=== PATIENT | female | born 1965 | race Caucasian/White ===

== ENCOUNTER 2016-06-26 23:19 | Emergency (ER) | payer MEDICAID ==
--- NOTE | 2016-06-26 23:38 | Emergency Department Record ---
History of Present Illness - General Chief Complaint: Hypotension Stated Complaint: LOW BP Time Seen by Provider: 06/26/16 23:35 Source: Patient, Family Mode of Arrival: Ambulatory Limitations: No limitations - History of Present Illness Initial Comments: 50 yo female presents with weakness . She states she was admitted for a groin infection. She states she was treated with IV antibiotics and an I and D. The infection greatly improved. She was discharged today at 6pm. She got home and was tired and wanted to take a nap. She took her [place], Zanaflex, and Klonopin and laid down. He later noted that she was slow, slurred and sluggish. He took her blood pressure and it was noted to be low. He stated she was not confused just slower that her baseline to answer. No syncope. No chest pain or shortness of breath. She is scheduled for outpatient IV infusions of Vancomycin and Ertapenem. No fevers in the last [address] Nunn was the admitting doctor per the patient. Diagnosis: Cellulitis with Bartholin abscess, S/P I and D. Complaint: Lightheadedness, Other (Weakness) Onset/Timin -: Days(s) Description: Difficulty walking, Lightheadedness History of Same: No Severity: Mild Worsens With: Movement Associated Symptoms: Weakness - Related Data Home Medications Medication Instructions Recorded Confirmed Last Taken Ondansetron HCl [Zofran] 4 mg PO Q8HR PRN 07/05/13 06/26/16 11/09/15 Clonazepam [Clonazepam] 1 - 2 tab PO TID 10/11/14 06/26/16 11/09/15 Meclizine HCl [Antivert] 25 mg PO Q6HR PRN 11/09/15 06/26/16 11/06/15 Tizanidine HCl [Tizanidine HCl] 4 mg PO TID 11/26/15 06/26/16 Unknown Hydrocodone/Acetaminophen [[place] 1 tab PO Q6H PRN 03/03/16 06/26/16 Unknown 7.5mg/325mg] Promethazine HCl 12.5 mg PO BID 03/03/16 06/26/16 Unknown Allergies Allergy/AdvReac Type Severity Reaction Status Date / Time aspirin [ASPIRIN] Allergy Unknown ABDOMINAL Verified 03/03/16 18:00 PAIN iodine [IODINE] Allergy Unknown SHORTNESS Verified 03/03/16 18:00 OF BREATH latex [LATEX] Allergy Unknown RASH Verified 03/03/16 18:00 NSAIDS (Non-Steroidal Allergy Unknown ABDOMINAL Verified 03/03/16 18:00 Anti-Inflamma CRAMPS [NSAIDS (NON-STEROIDAL ANTI-INFLAMMA] venom-honey bee Allergy ANAPHYLAXIS Verified 03/03/16 18:00 [bee venom (honey bee)] Travel Screening - Travel/Exposure Within Last 30 Days Have you traveled within the last 30 days?: No Review of Systems Constitutional: Reports: Malaise, Weakness. Denies: Chills, Fever Eyes: Denies: Eye discharge, Eye pain, Photophobia, Vision change ENT: Denies: Congestion, Throat pain Respiratory: Denies: Cough, Dyspnea, Hemoptysis, Stridor, Wheezes Cardiovascular: Denies: Arrhythmia, Chest pain, Palpitations, Syncope (near) Endocrine: Denies: Polydipsia, Polyuria Gastrointestinal: Reports: Nausea. Denies: Abdominal pain, Diarrhea, Vomiting Genitourinary: Denies: Dysuria, Urgency Musculoskeletal: Denies: Arthralgia, Back pain, Myalgia, Neck pain Skin: Reports: As per HPI, Lesions. Denies: Bruising, Change in color Neurological: Reports: Weakness. Denies: Confusion, Headache Psychiatric: Denies: Anxiety Hematological/Lymphatic: Denies: Blood Clots, Easy bleeding, Easy bruising, Swollen glands Past Medical History - SOCIAL HISTORY Smoking Status: Former smoker Alcohol Use: None Drug Use: None - RESPIRATORY Hx Respiratory Disorders: Yes Hx Pneumonia: Yes (hospitalized in January 2016) - CARDIOVASCULAR Hx Cardio Disorders: No - NEURO Hx Neuro Disorders: Yes Hx Seizures: Yes (February 2016) - GI Hx GI Disorders: Yes Hx Nausea/Vomiting: Yes Hx Ulcer: Yes Comment:: poor absorption - Hx Genitourinary Disorders: Yes Hx Kidney Stones: Yes Hx UTI: Yes - ENDOCRINE Hx Endocrine Disorders: Yes Hx Diabetes: Yes (corrected after gastric bypass) - MUSCULOSKELETAL Hx Musculoskeletal Disorders: Yes Hx Arthritis: Yes Hx Fibromyalgia: Yes Comment:: chronic pain - PSYCH Hx Psych Problems: Yes Hx Anxiety: Yes Hx Depression: Yes - HEMATOLOGY/ONCOLOGY Hx Hematology/Oncology Disorders: Yes Hx Anemia: Yes Hx Blood Transfusions: Yes Comment:: Lupus Family Medical History Any Significant Family History?: Yes Hx Diabetes: Father, Mother, Grandparents Hx Heart Disease: Father, Mother, Grandparents Hx HTN: Father, Mother Hx Kidney Disease: Grandparents Hx Resp Disorders: Father, Mother, Grandparents Hx Seizures: Brother/Sister Hx Stroke: Brother/Sister Physical Exam - General General Appearance: Alert, Oriented x3, Cooperative, Other (slowed speech with slight slurring) Limitations: No limitations - Head Head exam: Atraumatic, Normocephalic, Normal inspection - Eye Eye exam: Normal appearance, PERRL. negative: Conjunctival injection, Periorbital swelling - ENT ENT exam: Normal exam, Mucous membranes moist Ear exam: Normal external inspection Nasal Exam: Normal inspection Mouth exam: Normal external inspection Teeth exam: Normal inspection Throat exam: Normal inspection - Neck Neck exam: Normal inspection, Full ROM. negative: Tenderness - Respiratory Respiratory exam: Normal lung sounds bilaterally. negative: Respiratory distress - Cardiovascular Cardiovascular Exam: Regular rate, Normal rhythm, Normal heart sounds - GI/Abdominal GI/Abdominal exam: Soft. negative: Tenderness - Rectal Rectal exam: Deferred - exam: Abnormal external exam. negative: Normal external exam (enlarged tender left labial area) - Extremities Extremities exam: Normal inspection. negative: Calf tenderness, Pedal edema - Back Back exam: Reports: Normal inspection, Full ROM. Denies: CVA tenderness (R), CVA tenderness (L), Muscle spasm, Rash noted, Tenderness - Neurological Neurological exam: Abnormal gait, Alert, Altered, Oriented X3 - Psychiatric Psychiatric exam: Flat affect - Skin Skin exam: Dry, Intact, Normal color, Warm Course - Reevaluation(s) Reevaluation #1: [place] [facility] [place] 06/27/16 00:00 Reevaluation #2: IV infusing. No distress. She seems sleepy and mildly slurred. No confusion 06/27/16 00:01 06/27/16 01:25 Reevaluation #3: EKG 23:58 Rate 86, NSR Intervals normal axis normal, ST normal artifact in V6 06/27/16 00:06 IV Fluid boluses being given BP 84/ No distress, calm respirations. 06/27/16 00:07 06/27/16 01:26 Reevaluation #4: CBC with a Hgb of 10.6 CR is 1.4 otherwise no acute changes. 06/27/16 00:[address] scans were reviewed The head CT scan was normal The NC of the ABD/Pelvis Gas in bladder from possible recent catheterization, bibasilar air space disease. The patient is starting her 2rd liter. BP is now 105/ The patient is very alert and conversation. No confusion. She got up to the bedside urinal without any symptoms. No lightheadedness or dizziness. Given her negative work up with labs, CT scans and clinical presentation that was consistent with over medicated (Zanaflex, Klonopin, [place]) at the time of her nap I do not find any other acute changes or ongoing symptoms as she is now quite alert and without symptoms. 06/27/16 01:11 06/27/16 01:12 06/27/16 01:26 06/27/16 01:29 Reevaluation #5: The blood pressure remains at her baseline as she reports her BP during the hospitalization was always around 100 to 110 systolic She remains very alert and conversational. The most plausible cause of her drowsiness, sleepiness was over medication with a negative work up, no fever, normal EKG, no other associated symptoms and a complete return to baseline after the medications She will be DC home She has her home infusions today She was instructed not to take her sleeping medications or pain medications tonight She is to call her PCP and OBGYN Tuesday as scheduled. 06/27/16 02:00 Medical Decision Making - Lab Data Result diagrams: 06/26/16 23:45 06/26/16 23:45 Disposition Disposition: Discharge Clinical Impression: Adverse effect of drug Disposition: Home, Self-Care Condition: (1) Good Instructions: Opioid Pain Management (ED) Additional Instructions: Do not take your pain medication tonight or your Klonopin Call your doctor tomorrow to discuss this ER visit and follow up your healing of your cellulitis and abscess Return to the ER if you have any return of symptoms or any other new symptoms that concern you Forms: Patient Portal Access Time of Disposition: 02:04
[2016-06-26 23:54] LABS: HEMATOCRIT 34.5 % (35.0-47.0); HEMOGLOBIN 10.6 gm/dl (11.6-16.0); MEAN CELL VOLUME 94.3 fl (81-97); MEAN CORPUSCULAR HGB CONC 30.7 g/dl (32-36); MEAN PLATELET VOLUME 8.8 fl (7.4-10.4); PLATELET COUNT 442 K/uL (130-400); RED BLOOD COUNT 3.66 M/uL (3.80-5.40); RED CELL DISTRIBUTION WIDTH 12.6 % (11.5-14.5); WHITE BLOOD COUNT W/O DIFF 7.5 K/uL (4.2-12.2)
[2016-06-27 00:01] LABS: MEAN CORPUSCULAR HEMOGLOBIN 28.9 pg (27-33)
[2016-06-27] MEDS ORDERED: 0.9 % SODIUM CHLORIDE 1,000 ML BAG IV ONE (00:02)
[2016-06-27 00:07] LABS: ALB/GLOB RATIO 1.1 (1.1-1.8); ALBUMIN 3.5 gm/dL (3.5-5.0); ALKALINE PHOSPHATASE 100 U/L (38-126); ALT/SGPT 18 U/L (9-52); ANION GAP 9.4 (7-16); AST/SGOT 17 U/L (14-36); BILIRUBIN,TOTAL 0.33 mg/dL (0.2-1.3); BLOOD UREA NITROGEN 9 mg/dL (7-17); CARBON DIOXIDE 23.6 mmol/L (22-30); CREATININE 1.4 mg/dL (0.52-1.04); EST GLOMERULAR FILTRATION RATE 42 ml/min; GLUCOSE,RANDOM 143 mg/dL (70-110); TOTAL PROTEIN 6.8 gm/dL (6.3-8.2)
[2016-06-27 00:08] LABS: PROTHROMBIN TIME (PATIENT) 11.3 SECONDS (9.5-12.1)
[2016-06-27 00:10] LABS: PARTIAL THROMBOPLASTIN TIME 63.9 SECONDS (24.5-39.1)
[2016-06-27 00:22] LABS: TROPONIN I < 0.012 ng/mL (0.00-0.034)
[2016-06-27 01:29] LABS: URINE APPEARANCE CLEAR; URINE BILIRUBIN NEGATIVE (NEGATIVE); URINE BLOOD MODERATE (NEGATIVE); URINE COLOR YELLOW; URINE GLUCOSE (UA) NEGATIVE (NEGATIVE); URINE KETONE NEGATIVE (NEGATIVE); URINE LEUKOCYTE ESTERASE SMALL (NEGATIVE); URINE NITRITE NEGATIVE (NEGATIVE); URINE PROTEIN NEGATIVE (NEGATIVE); URINE UROBILINOGEN 0.2 E.U./dL (0.20 - 1.00)
[2016-06-27 01:41] LABS: URINE BACTERIA 1+; URINE EPITHELIAL CELLS 0 - 2 (FEW); URINE WBC 0 - 2 (0-2/hpf)
[2016-06-27] MEDS ORDERED: HEPARIN SODIUM FLUSH 100 UNITS/ML SYR 5ML IVP ONE (02:16)
== END 2016-06-27 02:39 | disposition home or self-care (01) ==
LOC: ER 23:19
DX: I95.2 Hypotension due to drugs (principal); R42 Dizziness and giddiness; R47.81 Slurred speech; R10.84 Generalized abdominal pain; R26.2 Difficulty in walking, not elsewhere classified; R53.1 Weakness; T42.4X5A Adverse effect of benzodiazepines, initial encounter; T42.8X5A Adverse effect of antiparkinsonism drugs and other central muscle-tone depressants, initial encounter; T40.2X5A Adverse effect of other opioids, initial encounter; Y92.009 Unspecified place in unspecified non-institutional (private) residence as the place of occurrence of the external cause
CPT/HCPCS: 99284 ×2; 96374; 85730; 85610; 84484; 80053; 81001; 85027; 70450; 74176; 93005; 93010; J1642; 85025; J7030

== ENCOUNTER 2016-12-12 13:17 | Emergency (ER) | payer MEDICAID ==
--- NOTE | 2016-12-12 13:47 | Emergency Department Record ---
History of Present Illness - General Chief complaint: Vomiting Stated complaint: BODY ACHES,VOMITING Time Seen by Provider: 12/12/16 13:33 Source: Patient Mode of Arrival: Ambulatory Limitations: No limitations - History of Present Illness Initial comments: The patient is here due to feeling like she is dehydrated. She has a long hx of chronic pain and malabsorbtion and gets twice a week IV fluid infusions thru an infusaport. She missed both of her appointments last week due to being in pain after having 4 teeth extracted. Now she is out of her liquid Vicodin and she feels like she is dehydrated. She also now is having total body pain in all of her joints and extremities. The patient states she called her PCP and was told to go to the ER for hydration and pain control. MD complaint: Nausea Onset/Timin -: Days(s) Associated Abdominal Pain: No Quality: Aching Consistency: Constant Improves with: None Worsens with: None Associated Symptoms: Loss of appetite, Weakness - Related Data Home Medications Medication Instructions Recorded Confirmed Last Taken Amoxicillin [Amoxil] 10 ml PO BID 12/12/16 12/12/16 1 Day Ago ~12/11/16 Hydrocodone/Acetaminophen 5 ml PO Q4HR PRN 12/12/16 12/12/16 1 Day Ago [Hydrocodone/Acetamin ~12/11/16 7.5mg/325mg/15ml] Nortriptyline HCl [Nortriptyline 1 tab PO DAILY 12/12/16 12/12/16 1 Day Ago HCl] ~12/11/16 Allergies Allergy/AdvReac Type Severity Reaction Status Date / Time aspirin [ASPIRIN] Allergy Unknown ABDOMINAL Verified 03/03/16 18:00 PAIN iodine [IODINE] Allergy Unknown SHORTNESS Verified 03/03/16 18:00 OF BREATH latex [LATEX] Allergy Unknown RASH Verified 03/03/16 18:00 NSAIDS (Non-Steroidal Allergy Unknown ABDOMINAL Verified 03/03/16 18:00 Anti-Inflamma CRAMPS [NSAIDS (NON-STEROIDAL ANTI-INFLAMMA] venom-honey bee Allergy ANAPHYLAXIS Verified 03/03/16 18:00 [bee venom (honey bee)] Travel Screening - Travel/Exposure Within Last 30 Days Have you traveled within the last 30 days?: No - Travel/Exposure Within Last Year Have you traveled outside the [place] in the last year?: No - Additonal Travel Details Have you been exposed to anyone with a communicable illness?: No Review of Systems Constitutional: Denies: Chills, Fever Eyes: Denies: Eye discharge ENT: Denies: Congestion Respiratory: Denies: Cough, Dyspnea Past Medical History - SOCIAL HISTORY Smoking Status: Former smoker Alcohol Use: None Drug Use: None - RESPIRATORY Hx Respiratory Disorders: Yes Hx Pneumonia: Yes (hospitalized in January 2016) - CARDIOVASCULAR Hx Cardio Disorders: No - NEURO Hx Neuro Disorders: Yes Hx Seizures: Yes (February 2016) - GI Hx GI Disorders: Yes Hx Nausea/Vomiting: Yes Hx Ulcer: Yes Comment:: poor absorption - Hx Genitourinary Disorders: Yes Hx Kidney Stones: Yes Hx UTI: Yes - ENDOCRINE Hx Endocrine Disorders: Yes Hx Diabetes: Yes (corrected after gastric bypass) - MUSCULOSKELETAL Hx Musculoskeletal Disorders: Yes Hx Arthritis: Yes Hx Fibromyalgia: Yes Comment:: chronic pain - PSYCH Hx Psych Problems: Yes Hx Anxiety: Yes Hx Depression: Yes - HEMATOLOGY/ONCOLOGY Hx Hematology/Oncology Disorders: Yes Hx Anemia: Yes Hx Blood Transfusions: Yes Comment:: Lupus Family Medical History Any Significant Family History?: Yes Hx Diabetes: Father, Mother, Grandparents Hx Heart Disease: Father, Mother, Grandparents Hx HTN: Father, Mother Hx Kidney Disease: Grandparents Hx Resp Disorders: Father, Mother, Grandparents Hx Seizures: Brother/Sister Hx Stroke: Brother/Sister Physical Exam - General General Appearance: Alert, Oriented x3, Cooperative, No acute distress - Head Head exam: Atraumatic, Normocephalic, Normal inspection - Eye Eye exam: Normal appearance, PERRL - ENT Teeth exam: negative: Normal inspection (There are dental extraction sites but no obvious areas of infection.) Throat exam: Normal inspection. negative: Tonsillar erythema, Tonsillar exudate - Neck Neck exam: Normal inspection, Full ROM. negative: Tenderness - Respiratory Respiratory exam: Normal lung sounds bilaterally. negative: Respiratory distress - Cardiovascular Cardiovascular Exam: Regular rate, Normal rhythm, Normal heart sounds - GI/Abdominal GI/Abdominal exam: Soft, Normal bowel sounds. negative: Tenderness - Extremities Extremities exam: Normal inspection, Full ROM, Normal capillary refill. negative: Tenderness - Neurological Neurological exam: Alert, Normal gait. negative: Abnormal gait, Motor sensory deficit Course Vital Signs 12/12/16 13:20 Temperature 98.6 F Pulse Rate 97 H Respiratory 20 Rate Blood Pressure 139/83 Pulse Ox 98 - Reevaluation(s) Reevaluation #1: The patient is doing well. She has had no further vomiting in the ED and is resting comfortably. 12/12/16 14:35 Reevaluation #2: The patient is doing very well at this time. Her pain is much improved with the pain medicine and she has no further nausea or vomiting. On exam her abdomen is very soft and nontender in all 4 quads. She feels ready for home. 12/12/16 14:47 Medical Decision Making - Lab Data Result diagrams: 12/12/16 13:45 12/12/16 13:45 Disposition Disposition: Discharge Clinical Impression: Nausea & vomiting Qualifiers: Vomiting type: unspecified Vomiting Intractability: non-intractable Qualified Code(s): R11.2 - Nausea with vomiting, unspecified Disposition: Home, Self-Care Condition: (1) Good Instructions: Acute Nausea and Vomiting (ED) Additional Instructions: Please continue your regular medicines. Please see your PCP to refill your pain medicines if needed. Return to the ER for any problems, increased pain, fever, or vomiting. Forms: Patient Portal Access Time of Disposition: 14:45 Quality - Quality Measures Quality Measures: N/A - Blood Pressure Screening View Details: Yes Does Patient Have Any of the Following: No Blood Pressure Classification: Hypertensive Reading Systolic Measurement: 148 Diastolic Measurement: 78 Screening for High Blood Pressure: < Pre-Hypertensive BP, F/U Documented > [ G8950] Pre-Hypertensive Follow-up Interventions: Referral to alternative/primary care provider.
[2016-12-12] MEDS: 0.9 % SODIUM CHLORIDE 1,000 ML BAG IV ONE (13:50)
[2016-12-12] MEDS: ONDANSETRON HCL IV 4 MG/2 ML VIAL IV ONE (13:50)
[2016-12-12 13:59] LABS: EOS % 9.7 % (0-6); GRAN % 50.6 % (47-80); HEMOGLOBIN 11.1 gm/dl (11.6-16.0); MEAN CELL VOLUME 92.8 fl (81-97); MEAN CORPUSCULAR HEMOGLOBIN 29.4 pg (27-33); MEAN CORPUSCULAR HGB CONC 31.7 g/dl (32-36); MONO % 8.7 % (0-9); PLATELET COUNT 313 K/uL (130-400); RED BLOOD COUNT 3.77 M/uL (3.80-5.40); RED CELL DISTRIBUTION WIDTH 12.7 % (11.5-14.5); WHITE BLOOD COUNT W/O DIFF 4.1 K/uL (4.2-12.2)
[2016-12-12 14:16] LABS: ALB/GLOB RATIO 1.4 (1.1-1.8); ALBUMIN 3.7 g/dL (4.0-5.0); ALKALINE PHOSPHATASE 109 U/L (35-104); ALT/SGPT 12 U/L (<33); AST/SGOT 18 U/L (10.0-35.0); BLOOD UREA NITROGEN 10 mg/dL (6-20); CREATININE 0.6 mg/dL (0.5-0.9); EST GLOMERULAR FILTRATION RATE > 60 mL/min; GLUCOSE,RANDOM 114 mg/dL (74-109); LIPASE 22 U/L (13-60); TOTAL PROTEIN 6.4 g/dL (6.6-8.7)
[2016-12-12] MEDS: ONDANSETRON HCL IV 4 MG/2 ML VIAL IVP ONE (14:25)
[2016-12-12] MEDS: HYDROMORPHONE HCL 1MG/ML **SYRINGE IVP ONE (14:30)
[2016-12-12] MEDS: HEPARIN SODIUM FLUSH 100 UNITS/ML SYR 5ML IVP SCH (14:52)
== END 2016-12-12 14:58 | disposition home or self-care (01) ==
LOC: ER 13:17
DX: R11.2 Nausea with vomiting, unspecified (principal); R53.1 Weakness; K08.409 Partial loss of teeth, unspecified cause, unspecified class
CPT/HCPCS: 99284 ×2; 96376; 96374; 96375; 96361; 83690; 85025; 86140; 80053; J2405; J1642; J1170; J7030

== ENCOUNTER 2017-02-16 20:48 | Emergency (ER) | payer MEDICAID ==
--- NOTE | 2017-02-16 21:06 | Emergency Department Record ---
History of Present Illness - General Stated Complaint: PORT INFECTION(CHEST),NOT ABLE TO EAT Time Seen by Provider: 02/16/17 20:53 Source: Patient Mode of Arrival: Ambulatory Limitations: No limitations - History of Present Illness Initial comments: 51 yo female presents with a concern about her port that it may be infected. She reports she has redness and soreness at the port. This started over the last week. She has had some yellowish drainage. She reports she has been to [facility] 3 times in the last week. She has had labs drawn and seen by surgery. She states no decision was made. She called Dr Kevin and was directed to the ED. NO fever the last 3 days. -: Week(s) (1) Location: Left Radiation: Non-Radiating Quality: Aching Consistency: Constant Improves with: None Worsens with: None Associated Symptoms: Denies other symptoms - [place] Coma Scale Eye Response: (4) Open spontaneously Motor Response: (6) Obeys commands Verbal Response: (5) Oriented [place] Total: 15 - Related Data Previous Rx's Medication Instructions Recorded Cephalexin [Keflex] 500 mg PO TID #21 cap 02/16/17 Allergies Allergy/AdvReac Type Severity Reaction Status Date / Time aspirin [ASPIRIN] Allergy Unknown ABDOMINAL Verified 03/03/16 18:00 PAIN iodine [IODINE] Allergy Unknown SHORTNESS Verified 03/03/16 18:00 OF BREATH latex [LATEX] Allergy Unknown RASH Verified 03/03/16 18:00 NSAIDS (Non-Steroidal Allergy Unknown ABDOMINAL Verified 03/03/16 18:00 Anti-Inflamma CRAMPS [NSAIDS (NON-STEROIDAL ANTI-INFLAMMA] duloxetine [From Cymbalta] Allergy BEHAVIORAL Verified 02/16/17 21:36 CHANGES pregabalin [From Lyrica] Allergy SWELLING Verified 02/16/17 21:36 (GENERAL) tramadol Allergy DIZZINESS Verified 02/16/17 21:36 venlafaxine [From Effexor] Allergy SWELLING Verified 02/16/17 21:36 (GENERAL) venom-honey bee Allergy ANAPHYLAXIS Verified 03/03/16 18:00 [bee venom (honey bee)] Review of Systems Constitutional: Reports: Chills, Fever, Malaise. Denies: Weakness Eyes: Denies: Eye discharge ENT: Denies: Congestion, Throat pain Respiratory: Denies: Cough, Dyspnea, Hemoptysis, Stridor, Wheezes Cardiovascular: Denies: Chest pain, Palpitations, Syncope Endocrine: Denies: Fatigue Gastrointestinal: Denies: Abdominal pain, Diarrhea, Nausea, Vomiting Genitourinary: Denies: Dysuria, Urgency Musculoskeletal: Denies: Arthralgia, Back pain, Joint swelling, Myalgia Skin: Denies: Bruising, Change in color, Rash Neurological: Denies: Confusion, Headache, Numbness, Weakness Psychiatric: Denies: Anxiety Hematological/Lymphatic: Denies: Blood Clots, Easy bleeding, Easy bruising, Swollen glands Past Medical History - SOCIAL HISTORY Smoking Status: Former smoker Drug Use: None - RESPIRATORY Hx Respiratory Disorders: Yes Hx Pneumonia: Yes (hospitalized in January 2016) - CARDIOVASCULAR Hx Cardio Disorders: No - NEURO Hx Neuro Disorders: Yes Hx Seizures: Yes (February 2016) - GI Hx GI Disorders: Yes Hx Nausea/Vomiting: Yes Hx Ulcer: Yes Comment:: poor absorption - Hx Genitourinary Disorders: Yes Hx Kidney Stones: Yes Hx UTI: Yes - ENDOCRINE Hx Endocrine Disorders: Yes Hx Diabetes: Yes (corrected after gastric bypass) - MUSCULOSKELETAL Hx Musculoskeletal Disorders: Yes Hx Arthritis: Yes Hx Fibromyalgia: Yes Comment:: chronic pain - PSYCH Hx Psych Problems: Yes Hx Anxiety: Yes Hx Depression: Yes - HEMATOLOGY/ONCOLOGY Hx Hematology/Oncology Disorders: Yes Hx Anemia: Yes Hx Blood Transfusions: Yes Comment:: Lupus Family Medical History Hx Diabetes: Father, Mother, Grandparents Hx Heart Disease: Father, Mother, Grandparents Hx HTN: Father, Mother Hx Kidney Disease: Grandparents Hx Resp Disorders: Father, Mother, Grandparents Hx Seizures: Brother/Sister Hx Stroke: Brother/Sister Physical Exam - General General Appearance: Alert, Oriented x3, Cooperative, No acute distress Limitations: No limitations - Head Head exam: Atraumatic, Normocephalic, Normal inspection - Eye Eye exam: Normal appearance. negative: Conjunctival injection, Scleral icterus - ENT ENT exam: Normal exam, Mucous membranes moist Ear exam: Normal external inspection Nasal Exam: Normal inspection Mouth exam: Normal external inspection - Neck Neck exam: Normal inspection - Cardiovascular Cardiovascular Exam: Regular rate, Normal rhythm, Normal heart sounds Peripheral Pulses: 2+: Radial (R), Radial (L) - GI/Abdominal GI/Abdominal exam: Soft. negative: Tenderness - Rectal Rectal exam: Deferred - exam: Deferred - Extremities Extremities exam: Normal inspection. negative: Pedal edema Image of Full Body: 1 - very minimal erythema, no abnormal warm, no fluid or pus, no surrounding warmth or cellullitis, no overt signs of infection - Back Back exam: Reports: Normal inspection - Neurological Neurological exam: Alert, Normal gait, Oriented X3, Reflexes normal - Psychiatric Psychiatric exam: Normal affect, Normal mood - Skin Skin exam: Erythema (very minimal erythema, no abnormal warm, no fluid or pus, no surrounding warmth or cellullitis) Course - Reevaluation(s) Reevaluation #1: 02/16/17 21:[address] Kevin. We discussed the physical findings and vitals. No overt signs of serious infection at this time. He recommends IV fluids, one dose of IV antibiotics and the patient can see Dr Wright tomorrow. 02/16/17 22:18 No acute changes on the CBC 02/16/17 22:34 BMP and CRP are negative Medical Decision Making - Lab Data Result diagrams: 02/16/17 21:30 02/16/17 21:30 Disposition Disposition: Discharge Clinical Impression: Cellulitis Qualifiers: Site of cellulitis: other site Qualified Code(s): L03.818 - Cellulitis of other sites Disposition: Home, Self-Care Condition: (1) Good Instructions: Cellulitis (ED) Additional Instructions: Call Dr Wright tomorrow for close follow up of your port concerns Prescriptions: Cephalexin [Keflex] 500 mg PO TID #21 cap Time of Disposition: 22:34 Quality - Quality Measures Quality Measures: N/A - Blood Pressure Screening Does Patient Have Any of the Following: No Blood Pressure Classification: Hypertensive Reading Systolic Measurement: 169 Diastolic Measurement: 107 Screening for High Blood Pressure: < Pre-Hypertensive BP, F/U Documented > [ G8950] Pre-Hypertensive Follow-up Interventions: Referral to alternative/primary care provider.
[2017-02-16] MEDS: 0.9 % SODIUM CHLORIDE 1,000 ML BAG IV ONE (21:34)
[2017-02-16 22:05] LABS: BASO % 1.2 % (0-6); EOS % 5.3 % (0-6); GRAN % 46.7 % (47-80); HEMATOCRIT 36.2 % (35.0-47.0); HEMOGLOBIN 11.5 gm/dl (11.6-16.0); LYMPH % 37.8 % (16-45); MEAN CELL VOLUME 91.9 fl (81-97); MEAN CORPUSCULAR HGB CONC 31.8 g/dl (32-36); MEAN PLATELET VOLUME 9.2 fl (7.4-10.4); PLATELET COUNT 289 K/uL (130-400); RED BLOOD COUNT 3.94 M/uL (3.80-5.40); RED CELL DISTRIBUTION WIDTH 12.2 % (11.5-14.5); WHITE BLOOD COUNT W/O DIFF 5.1 K/uL (4.2-12.2)
[2017-02-16 22:06] LABS: MEAN CORPUSCULAR HEMOGLOBIN 29.1 pg (27-33)
[2017-02-16 22:19] LABS: BLOOD UREA NITROGEN 13 mg/dL (6-20); CREATININE 0.7 mg/dL (0.5-0.9); EST GLOMERULAR FILTRATION RATE > 60 mL/min
[2017-02-16 22:22] LABS: GLUCOSE,RANDOM 113 mg/dL (74-109)
[2017-02-16] MEDS: ONDANSETRON HCL IV 4 MG/2 ML VIAL IVP ONE ×2 (22:26→23:11)
[2017-02-16] MEDS: MORPHINE SULFATE 5 MG/ML PFS IVP ONE (22:26)
[2017-02-16] MEDS: CEFAZOLIN 2 Gram 2 GM/50 ML BAG IVPB ONE (22:47)
[2017-02-16] MEDS: ACETAMINOPHEN 1,000 MG/100 ML BTL IVPB ONE (23:11)
== END 2017-02-16 23:46 | disposition home or self-care (01) ==
LOC: ER 20:48
DX: T82.7XXA Infection and inflammatory reaction due to other cardiac and vascular devices, implants and grafts, initial encounter (principal); L03.313 Cellulitis of chest wall; Y82.8 Other medical devices associated with adverse incidents; Z87.891 Personal history of nicotine dependence
CPT/HCPCS: 80048; 85025; 86140; 96365; 96366; 96368; 96375; 96376; 99284; J2405; J7030

== ENCOUNTER 2017-02-26 21:06 | Emergency (ER) | payer MEDICAID ==
[2017-02-26] MEDS ORDERED: ONDANSETRON HCL IV 4 MG/2 ML VIAL IV ONE (22:20)
[2017-02-26] MEDS ORDERED: 0.9 % SODIUM CHLORIDE 1,000 ML BAG IV ONE (22:20)
--- NOTE | 2017-02-26 22:40 | Emergency Department Record ---
History of Present Illness - General Chief complaint: Vomiting Stated complaint: VOMITTING Time Seen by Provider: 02/26/17 22:20 Source: Patient Mode of Arrival: Ambulatory Limitations: No limitations - History of Present Illness Initial comments: The patient is here due to a 3 day hx of nausea, and frequent vomiting. She denies any diarrhea, or abdominal bloating. She has a LONG hx of cyclic vomiting. The patient does report mild upper AP which started after the vomiting. She has had multiple surgeries including gastric bypass with revisions , cholecstectomy, appendectomy and SUE. MD complaint: Nausea, Vomiting Onset/Timin -: Days(s) Associated Symptoms: Nausea/vomiting - Related Data Allergies Allergy/AdvReac Type Severity Reaction Status Date / Time aspirin [ASPIRIN] Allergy Unknown ABDOMINAL Verified 03/03/16 18:00 PAIN iodine [IODINE] Allergy Unknown SHORTNESS Verified 03/03/16 18:00 OF BREATH latex [LATEX] Allergy Unknown RASH Verified 03/03/16 18:00 NSAIDS (Non-Steroidal Allergy Unknown ABDOMINAL Verified 03/03/16 18:00 Anti-Inflamma CRAMPS [NSAIDS (NON-STEROIDAL ANTI-INFLAMMA] duloxetine [From Cymbalta] Allergy BEHAVIORAL Verified 02/16/17 21:36 CHANGES pregabalin [From Lyrica] Allergy SWELLING Verified 02/16/17 21:36 (GENERAL) tramadol Allergy DIZZINESS Verified 02/16/17 21:36 venlafaxine [From Effexor] Allergy SWELLING Verified 02/16/17 21:36 (GENERAL) venom-honey bee Allergy ANAPHYLAXIS Verified 03/03/16 18:00 [bee venom (honey bee)] Travel Screening - Travel/Exposure Within Last 30 Days Have you traveled within the last 30 days?: No Review of Systems Constitutional: Denies: Chills, Fever Eyes: Denies: Eye discharge ENT: Denies: Congestion Respiratory: Denies: Cough, Dyspnea Past Medical History - SOCIAL HISTORY Smoking Status: Former smoker - RESPIRATORY Hx Respiratory Disorders: Yes Hx Pneumonia: Yes (hospitalized in January 2016) - CARDIOVASCULAR Hx Cardio Disorders: No - NEURO Hx Neuro Disorders: Yes Hx Seizures: Yes (February 2016) - GI Hx GI Disorders: Yes Hx Nausea/Vomiting: Yes Hx Ulcer: Yes Comment:: poor absorption - Hx Genitourinary Disorders: Yes Hx Kidney Stones: Yes Hx UTI: Yes - ENDOCRINE Hx Endocrine Disorders: Yes Hx Diabetes: Yes (corrected after gastric bypass) - MUSCULOSKELETAL Hx Musculoskeletal Disorders: Yes Hx Arthritis: Yes Hx Fibromyalgia: Yes Comment:: chronic pain - PSYCH Hx Psych Problems: Yes Hx Anxiety: Yes Hx Depression: Yes - HEMATOLOGY/ONCOLOGY Hx Hematology/Oncology Disorders: Yes Hx Anemia: Yes Hx Blood Transfusions: Yes Comment:: Lupus Family Medical History Any Significant Family History?: Yes Hx Diabetes: Father, Mother, Grandparents Hx Heart Disease: Father, Mother, Grandparents Hx HTN: Father, Mother Hx Kidney Disease: Grandparents Hx Resp Disorders: Father, Mother, Grandparents Hx Seizures: Brother/Sister Hx Stroke: Brother/Sister Physical Exam - General General Appearance: Alert, Oriented x3, Cooperative, No acute distress - Head Head exam: Atraumatic, Normocephalic, Normal inspection - Eye Eye exam: Normal appearance, PERRL - Neck Neck exam: Normal inspection, Full ROM. negative: Tenderness - Respiratory Respiratory exam: Normal lung sounds bilaterally. negative: Respiratory distress - Cardiovascular Cardiovascular Exam: Regular rate, Normal rhythm, Normal heart sounds - GI/Abdominal GI/Abdominal exam: Soft, Normal bowel sounds. negative: Diminished bowel sounds , Guarding, Rebound, Rigid, Tenderness - Extremities Extremities exam: Normal inspection, Full ROM, Normal capillary refill. negative: Tenderness Course Vital Signs 02/26/17 22:11 Temperature 98.4 F Pulse Rate [ 77 Pulse Ox Probe] Respiratory 18 Rate Blood Pressure 138/92 [Left Arm] Pulse Ox 96 - Reevaluation(s) Reevaluation #1: The patient is doing very well at this time. She denies any nausea and has been able to keep her pain medicine down with no vomiting. 02/26/17 23:22 Reevaluation #2: The patient is doing very well at this time. The patient states her nausea is much improved and she denies any AP or back pain. He oral medicines are staying down and she feels ready for home. On exam her abdomen is very soft and nontender in all 4 quads. 02/26/17 23:39 02/26/17 23:42 Medical Decision Making - Data Complexity MDM Data: Labs Ordered and/or Reviewed - Lab Data Result diagrams: 02/26/17 22:45 02/26/17 22:45 Disposition Disposition: Discharge Clinical Impression: Nausea & vomiting Qualifiers: Vomiting type: unspecified Vomiting Intractability: non-intractable Qualified Code(s): R11.2 - Nausea with vomiting, unspecified Disposition: Home, Self-Care Condition: (2) Stable Instructions: Acute Nausea and Vomiting (ED) Additional Instructions: Please continue your regular medicines. Please see your PCP next week if not better. Return to the ER for any worsening symptoms or any abdominal pain. Forms: Patient Portal Access Time of Disposition: 23:42 Quality - Quality Measures Quality Measures: N/A - Blood Pressure Screening View Details: Yes Does Patient Have Any of the Following: No Blood Pressure Classification: Pre-Hypertensive BP Reading Systolic Measurement: 154 Diastolic Measurement: 81 Screening for High Blood Pressure: < Pre-Hypertensive BP, F/U Documented > [ G8950] Pre-Hypertensive Follow-up Interventions: Referral to alternative/primary care provider.
[2017-02-26 22:57] LABS: BASO % 1.2 % (0-6); GRAN % 59.7 % (47-80); HEMATOCRIT 39.6 % (35.0-47.0); HEMOGLOBIN 12.7 gm/dl (11.6-16.0); LYMPH % 30.2 % (16-45); MEAN CORPUSCULAR HEMOGLOBIN 28.9 pg (27-33); MEAN CORPUSCULAR HGB CONC 32.1 g/dl (32-36); MEAN PLATELET VOLUME 9.2 fl (7.4-10.4); MONO % 7.9 % (0-9); PLATELET COUNT 376 K/uL (130-400); RED CELL DISTRIBUTION WIDTH 12.3 % (11.5-14.5); WHITE BLOOD COUNT W/O DIFF 5.2 K/uL (4.2-12.2)
[2017-02-26] MEDS ORDERED: DIPHENHYDRAMINE HCL IV 50 MG/ML VIAL IVP ONE (23:03)
[2017-02-26] MEDS ORDERED: HYDROCODONE/APAP 7.5/325 15ML ELIXIR PO ONE ×2 (23:03→23:07)
[2017-02-26] MEDS ORDERED: METOCLOPRAMIDE HCL 10 MG/2 ML VIAL IVP ONE (23:03)
[2017-02-26 23:12] LABS: BLOOD UREA NITROGEN 9 mg/dL (6-20); CREATININE 0.6 mg/dL (0.5-0.9); EST GLOMERULAR FILTRATION RATE > 60 mL/min; TOTAL PROTEIN 7.6 g/dL (6.6-8.7)
[2017-02-26 23:14] LABS: GLUCOSE,RANDOM 97 mg/dL (74-109)
[2017-02-26 23:17] LABS: ALB/GLOB RATIO 1.3 (1.1-1.8); ALBUMIN 4.3 g/dL (4.0-5.0); ALKALINE PHOSPHATASE 104 U/L (35-104); ALT/SGPT 11 U/L (<33); AST/SGOT 21 U/L (10.0-35.0); LIPASE 42 U/L (13-60)
== END 2017-02-27 00:19 | disposition home or self-care (01) ==
LOC: ER 21:06
DX: R11.2 Nausea with vomiting, unspecified (principal)
CPT/HCPCS: 99284 ×2; 96374; 96375; 83690; 85025; 80053; J2405; J3490; J1200; J2765; J7030

== ENCOUNTER 2017-07-26 22:27 | Emergency (ER) | payer MEDICAID ==
[2017-07-26] MEDS ORDERED: KETOROLAC 30 MG/ML VIAL IM ONE (22:47)
[2017-07-26] MEDS ORDERED: DEXAMETHASONE SOD PHOSPHATE 10MG/ML VIAL IM ONE (22:47)
--- NOTE | 2017-07-26 22:53 | Emergency Department Record ---
History of Present Illness - General Chief complaint: Hives Stated complaint: HIVES,HEADACHE,LAURA Time Seen by Provider: 07/26/17 22:47 Source: Patient Mode of Arrival: Ambulatory Limitations: No limitations - History of Present Illness Initial comments: 51 yo female presents to ED for a variety of reasons. Patient is concerned about hives to the face that have been waxing and waning for days, patient is unsure what she may be reacting too. Patient also reports diffuse body aches and fatigue since undergoing recent foot surgery er with Dr. Church, has been taking [place] 7.5 mg "that aren't helping, he told me to come to ER for pain control". Patient reports that she is walking unusually due to her recent surgery which has resulted in all-over pain symptoms. Patient denies fever, chills, cough, or recent illness. Patient reports that she cannot take oral steroids or NSAIDs due to previous gastric bypass surgery, but can take IM medications. MD complaint: Rash, Other -: Days(s) Hx Tetanus Toxoid Vaccination: Yes Year of Tetanus Vaccination: 2010 Location: Face, Chest Severity: Moderate Consistency: Intermittent, Now resolved Improves with: None Worsens with: None Associated symptoms: Myalgias Treatments Prior to Arrival: None - Related Data Allergies Allergy/AdvReac Type Severity Reaction Status Date / Time aspirin [ASPIRIN] Allergy Unknown ABDOMINAL Verified 03/03/16 18:00 PAIN iodine [IODINE] Allergy Unknown SHORTNESS Verified 03/03/16 18:00 OF BREATH latex [LATEX] Allergy Unknown RASH Verified 03/03/16 18:00 NSAIDS (Non-Steroidal Allergy Unknown ABDOMINAL Verified 03/03/16 18:00 Anti-Inflamma CRAMPS [NSAIDS (NON-STEROIDAL ANTI-INFLAMMA] duloxetine [From Cymbalta] Allergy BEHAVIORAL Verified 02/16/17 21:36 CHANGES pregabalin [From Lyrica] Allergy SWELLING Verified 02/16/17 21:36 (GENERAL) tramadol Allergy DIZZINESS Verified 02/16/17 21:36 venlafaxine [From Effexor] Allergy SWELLING Verified 02/16/17 21:36 (GENERAL) venom-honey bee Allergy ANAPHYLAXIS Verified 03/03/16 18:00 [bee venom (honey bee)] Review of Systems Constitutional: Denies: Chills, Fever, Malaise, Night sweats Eyes: Denies: Eye discharge, Eye pain ENT: Denies: Congestion, Ear pain, Epistaxis Respiratory: Denies: Cough, Dyspnea Cardiovascular: Denies: Chest pain, Dyspnea on exertion Endocrine: Denies: Fatigue, Heat or cold intolerance Gastrointestinal: Denies: Abdominal pain, Nausea, Vomiting Genitourinary: Denies: Incontinence, Retention Musculoskeletal: Reports: Myalgia. Denies: Arthralgia, Back pain, Gout Skin: Denies: Bruising, Change in color Neurological: Denies: Abnormal gait, Confusion, Headache, Seizure Psychiatric: Denies: Anxiety Hematological/Lymphatic: Denies: Anemia, Blood Clots Past Medical History - SOCIAL HISTORY Smoking Status: Former smoker - RESPIRATORY Hx Respiratory Disorders: Yes Hx Pneumonia: Yes (hospitalized in January 2016) - CARDIOVASCULAR Hx Cardio Disorders: No - NEURO Hx Neuro Disorders: Yes Hx Seizures: Yes (February 2016) - GI Hx GI Disorders: Yes Hx Nausea/Vomiting: Yes Hx Ulcer: Yes Comment:: poor absorption - Hx Genitourinary Disorders: Yes Hx Kidney Stones: Yes Hx UTI: Yes - ENDOCRINE Hx Endocrine Disorders: Yes Hx Diabetes: Yes (corrected after gastric bypass) - MUSCULOSKELETAL Hx Musculoskeletal Disorders: Yes Hx Arthritis: Yes Hx Fibromyalgia: Yes Comment:: chronic pain - PSYCH Hx Psych Problems: Yes Hx Anxiety: Yes Hx Depression: Yes - HEMATOLOGY/ONCOLOGY Hx Hematology/Oncology Disorders: Yes Hx Anemia: Yes Hx Blood Transfusions: Yes Comment:: Lupus Family Medical History Hx Diabetes: Father, Mother, Grandparents Hx Heart Disease: Father, Mother, Grandparents Hx HTN: Father, Mother Hx Kidney Disease: Grandparents Hx Resp Disorders: Father, Mother, Grandparents Hx Seizures: Brother/Sister Hx Stroke: Brother/Sister Physical Exam - General General Appearance: Alert, Oriented x3, Cooperative, No acute distress Limitations: No limitations - Head Head exam: Atraumatic, Normocephalic, Normal inspection Head exam detail: Other (No hives are present on examination). negative: Abrasion, Contusion, Milligan's sign, General tenderness, Hematoma, Laceration - Eye Eye exam: Other (chronic exotropia right eye). negative: Conjunctival injection , Periorbital swelling, Periorbital tenderness, Scleral icterus - ENT Ear exam: negative: Auricular hematoma, Auricular trauma Nasal Exam: negative: Active bleeding, Discharge, Dried blood, Foreign body Mouth exam: negative: Drooling, Laceration, Muffled voice, Tongue elevation - Neck Neck exam: Normal inspection. negative: Meningismus, Tenderness - Respiratory Respiratory exam: Normal lung sounds bilaterally. negative: Rales, Respiratory distress, Rhonchi, Stridor - Cardiovascular Cardiovascular Exam: Regular rate, Normal rhythm, Normal heart sounds - GI/Abdominal GI/Abdominal exam: Soft. negative: Rebound, Rigid, Tenderness - Rectal Rectal exam: Deferred - exam: Deferred - Extremities Extremities exam: Tenderness, Other (Post-operative changes right foot). negative: Calf tenderness, Pedal edema - Back Back exam: Denies: CVA tenderness (R), CVA tenderness (L) - Neurological Neurological exam: Alert, Normal gait, Oriented X3 - Psychiatric Psychiatric exam: Normal affect, Normal mood - Skin Skin exam: Normal color. negative: Abrasion Type of lesion: negative: abrasion Course - Reevaluation(s) Reevaluation #1: 07/26/17 22:55 Patient was seen and examined, informed that nothing further narcotic correa can be given beyond her [place] 7.5 mg that she is currently taking. As the patient is concerned about a reoccurrence of her hives, will administer Decadron IM (can 't tolerate po steroids) and Toradol for her myalgia symptoms. Patient has no uvular swelling, no wheezing on examination to suggest anaphylatic reaction. Patient appears stable for discharge at this time. Disposition Disposition: Discharge Clinical Impression: Urticaria, Post-operative pain Disposition: Home, Self-Care Condition: (2) Stable Instructions: Urticaria (ED) Additional Instructions: Return to ED if your symptoms worsen or if you have any concerns. Follow-up with your family doctor in 3-5 days as directed. Forms: Patient Portal Access Time of Disposition: 22:58 Quality - Quality Measures Quality Measures: N/A - Blood Pressure Screening Does Patient Have Any of the Following: No Blood Pressure Classification: Normal BP Reading Systolic Measurement: 113 Diastolic Measurement: 68 Screening for High Blood Pressure: < Normal BP, F/U Not Required > [G8783]
== END 2017-07-26 23:23 | disposition home or self-care (01) ==
LOC: ER 22:27
DX: L50.9 Urticaria, unspecified (principal); G89.18 Other acute postprocedural pain; M79.671 Pain in right foot; M79.1 Myalgia; Z87.891 Personal history of nicotine dependence
CPT/HCPCS: 96372; 99283; J1885

== ENCOUNTER 2017-08-01 21:00 | Emergency (ER) | payer MEDICAID ==
--- NOTE | 2017-08-01 21:10 | Emergency Department Record ---
History of Present Illness - General Chief Complaint: Chest Pain Stated Complaint: BADY ACHES/UNABLE TO URINATE/PRESSURE ON CHEST Time Seen by Provider: 08/01/17 21:09 Source: Patient - History of Present Illness Initial Comments: The patient states "I feel like a giant bruise." Pressure anterior 8/10 chest through to back on and off since Tuesday07-29-16 which became constant early today. It is associated with nausea, diaphoresis and slight shortness of breath. She has a history of lupus and thinks she could be having a flare up. Risks: denies CAD, OK, CVA, DM, htn, chol. smoking. She KELLY Shave a FH of both parents with CAD and a sister that of a CVA @ age 44. Her last stress test was 3-5 years ago. She denies history of clotting disorder, PE, DVT in the past She has several other problems including s/p gastric bypass which gave her complications and she is unable to take aspirin due to bleeding. Her GI malabsorption resultsd in her getting a central port and going to have IV infusion twice weekly of fluids and vitamins. She also has had recent foot surgery. The sutures were removed this week and she has no complaints about her foot this evening. - Related Data Allergies Allergy/AdvReac Type Severity Reaction Status Date / Time aspirin [ASPIRIN] Allergy Unknown ABDOMINAL Verified 08/01/17 21:05 PAIN iodine [IODINE] Allergy Unknown SHORTNESS Verified 08/01/17 21:05 OF BREATH latex [LATEX] Allergy Unknown RASH Verified 08/01/17 21:05 NSAIDS (Non-Steroidal Allergy Unknown ABDOMINAL Verified 08/01/17 21:05 Anti-Inflamma CRAMPS [NSAIDS (NON-STEROIDAL ANTI-INFLAMMA] duloxetine [From Cymbalta] Allergy BEHAVIORAL Verified 08/01/17 21:05 CHANGES pregabalin [From Lyrica] Allergy SWELLING Verified 08/01/17 21:05 (GENERAL) tramadol Allergy DIZZINESS Verified 08/01/17 21:05 venlafaxine [From Effexor] Allergy SWELLING Verified 08/01/17 21:05 (GENERAL) venom-honey bee Allergy ANAPHYLAXIS Verified 08/01/17 21:05 [bee venom (honey bee)] Review of Systems Reviewed: No additional complaints except as noted below Constitutional: Reports: As per HPI. Denies: Chills, Fever, Malaise, Night sweats, Weakness, Weight change Eyes: Reports: As per HPI. Denies: Eye discharge, Eye pain, Photophobia, Vision change ENT: Reports: As per HPI. Denies: Congestion, Dental pain, Ear pain, Epistaxis , Hearing loss, Throat pain Respiratory: Reports: As per HPI. Denies: Cough, Dyspnea, Hemoptysis, Stridor, Wheezes Cardiovascular: Reports: As per HPI. Denies: Arrhythmia, Chest pain, Dyspnea on exertion, Edema, Murmurs, Orthopnea, Palpitations, Paroxysmal nocturnal dyspnea, Rheumatic Fever, Syncope Endocrine: Reports: As per HPI. Denies: Fatigue, Heat or cold intolerance, Polydipsia, Polyuria Gastrointestinal: Reports: As per HPI. Denies: Abdominal pain, Constipation, Diarrhea, Hematemesis, Hematochezia, Melena, Nausea, Vomiting Genitourinary: Reports: As per HPI. Denies: Abnormal menses, Discharge, Dyspareunia, Dysuria, Frequency, Hematuria, Incontinence, Retention, Urgency Musculoskeletal: Reports: As per HPI. Denies: Arthralgia, Back pain, Gout, Joint swelling, Myalgia, Neck pain Skin: Reports: As per HPI. Denies: Bruising, Change in color, Change in hair/ nails, Lesions, Pruritus, Rash Neurological: Reports: As per HPI. Denies: Abnormal gait, Confusion, Headache, Numbness, Paresthesias, Seizure, Tingling, Tremors, Vertigo, Weakness Psychiatric: Reports: As per HPI. Denies: Anxiety, Auditory hallucinations, Depression, Homicidal thoughts, Suicidal thoughts, Visual hallucinations Hematological/Lymphatic: Reports: As per HPI. Denies: Anemia, Blood Clots, Easy bleeding, Easy bruising, Swollen glands Past Medical History - SOCIAL HISTORY Smoking Status: Former smoker - RESPIRATORY Hx Respiratory Disorders: Yes Hx Pneumonia: Yes (hospitalized in January 2016) - CARDIOVASCULAR Hx Cardio Disorders: No - NEURO Hx Neuro Disorders: Yes Hx Seizures: Yes (February 2016) - GI Hx GI Disorders: Yes Hx Nausea/Vomiting: Yes Hx Ulcer: Yes Comment:: poor absorption - Hx Genitourinary Disorders: Yes Hx Kidney Stones: Yes Hx UTI: Yes - ENDOCRINE Hx Endocrine Disorders: Yes Hx Diabetes: Yes (corrected after gastric bypass) - MUSCULOSKELETAL Hx Musculoskeletal Disorders: Yes Hx Arthritis: Yes Hx Fibromyalgia: Yes Comment:: chronic pain - PSYCH Hx Psych Problems: Yes Hx Anxiety: Yes Hx Depression: Yes - HEMATOLOGY/ONCOLOGY Hx Hematology/Oncology Disorders: Yes Hx Anemia: Yes Hx Blood Transfusions: Yes Comment:: Lupus Family Medical History Hx Diabetes: Father, Mother, Grandparents Hx Heart Disease: Father, Mother, Grandparents Hx HTN: Father, Mother Hx Kidney Disease: Grandparents Hx Resp Disorders: Father, Mother, Grandparents Hx Seizures: Brother/Sister Hx Stroke: Brother/Sister Physical Exam - General General Appearance: Alert, Oriented x3, Cooperative, No acute distress, Other ( anxious mildly) - Head Head exam: Normal inspection - Eye Eye exam: Normal appearance, PERRL Pupils: Normal accommodation - ENT ENT exam: Normal exam, Mucous membranes moist, Normal external ear exam, Normal orophraynx, TM's normal bilaterally Ear exam: Normal external inspection. negative: External canal tenderness Nasal Exam: Normal inspection. negative: Discharge, Sinus tenderness Mouth exam: Normal external inspection, Tongue normal Teeth exam: Normal inspection. negative: Dental caries Throat exam: Normal inspection. negative: Tonsillar erythema, Tonsillar exudate - Neck Neck exam: Normal inspection, Full ROM. negative: Lymphadenopathy, Meningismus , Tenderness - Respiratory Respiratory exam: Normal lung sounds bilaterally. negative: Accessory muscle use, Decreased breath sounds, Prolonged expiratory, Respiratory distress, Rhonchi, Wheezes - Cardiovascular Cardiovascular Exam: Regular rate, Normal rhythm, Normal heart sounds - GI/Abdominal GI/Abdominal exam: Soft, Normal bowel sounds. negative: Tenderness - Rectal Rectal exam: Deferred - exam: Deferred - Extremities Extremities exam: Normal inspection, Full ROM, Normal capillary refill. negative: Tenderness - Back Back exam: Reports: Normal inspection, Full ROM. Denies: Muscle spasm, Rash noted, Tenderness - Neurological Neurological exam: Alert, Normal gait, Oriented X3, Reflexes normal - Psychiatric Psychiatric exam: Normal affect, Normal mood - Skin Skin exam: Dry, Intact, Normal color, Warm Course Vital Signs 08/01/17 21:07 Temperature 98 F Pulse Rate [ 103 H Pulse Ox Probe] Respiratory 20 Rate Blood Pressure 133/88 [Left Arm] Pulse Ox 97 - Reevaluation(s) Reevaluation #1: Throughout the ED stay here the patient has had multiple requests for pain medication, nausea medication, repeat urinary catheterizations, and assistance at the bedside. She states she takes norco 10's every 6 hours for the past few years, yet today did not take her norco, "because I got too busy with doing other things." She states her chest does not hurt any more than the rest of her body and she "hurts all over." Patient is requesting we give her a norco pill which we refused because she just had one gram of tylenol. She also states she must take norco liquid because of her mal-absorption, yet is now requesting norco pills. The patient states that she had not urinated at all in 3 days. She received a catheterization which returned clear urine normal in appearance. She later requested another catheterization which was declined. the patient then ambulated to the bathroom and urinated on her own. Patient states she has chronic pain due to lupus and numerous medical conditions and she requests that we give her something to "take away her pain." It was explained to her that the emergency department rules out emergencies, in her case ruling out cardiac emergencies tonight. Her two troponins 4 hours apart were unchanged and both normal. She was instructed to follow with her PCP Dr. Schroeder in the morning (6 hours), and follow with consultants for management of her chronic medical issues. 08/02/17 02:03 08/02/17 02:19 Medical Decision Making - Management Options MDM Management: No Additional Work-up Planned - Data Complexity MDM Data: Labs Ordered and/or Reviewed, X-Ray Ordered and/or Reviewed (CXR Neg ) - Lab Data Result diagrams: 08/01/17 21:37 08/01/17 21:41 Disposition Disposition: Discharge Clinical Impression: Chest pain in adult, Chronic pain disorder Lupus (systemic lupus erythematosus) Qualifiers: Systemic lupus erythematosus type: unspecified Systemic lupus erythematosus organ involvement: unspecified Qualified Code(s): M32.9 - Systemic lupus erythematosus, unspecified Malabsorption Qualifiers: Intestinal malabsorption type: unspecified Qualified Code(s): K90.9 - Intestinal malabsorption, unspecified Disposition: Home, Self-Care Condition: (2) Stable Instructions: Chest Pain (ED) Additional Instructions: Home, rest. Continue present meds. Follow up with Dr Schroeder in office in a.m. Forms: Patient Portal Access Quality - Quality Measures Quality Measures: N/A - Blood Pressure Screening Does Patient Have Any of the Following: No Blood Pressure Classification: Normal BP Reading Systolic Measurement: 110 Diastolic Measurement: 76 Screening for High Blood Pressure: < Normal BP, F/U Not Required > [G8783]
[2017-08-01] MEDS ORDERED: 0.9 % SODIUM CHLORIDE 1,000 ML BAG IV ONE (21:26)
[2017-08-01 21:47] LABS: BASO % 0.7 % (0-6); EOS % 7.2 % (0-6); GRAN % 34.2 % (47-80); HEMATOCRIT 37.9 % (35.0-47.0); HEMOGLOBIN 11.8 gm/dl (11.6-16.0); LYMPH % 45.6 % (16-45); MEAN CELL VOLUME 92.7 fl (81-97); MEAN CORPUSCULAR HEMOGLOBIN 28.9 pg (27-33); MEAN CORPUSCULAR HGB CONC 31.1 g/dl (32-36); MONO % 12.3 % (0-9); PLATELET COUNT 329 K/uL (130-400); RED BLOOD COUNT 4.09 M/uL (3.80-5.40); WHITE BLOOD COUNT W/O DIFF 4.3 K/uL (4.2-12.2)
[2017-08-01 21:48] LABS: URINE APPEARANCE CLEAR; URINE BILIRUBIN NEGATIVE (NEGATIVE); URINE BLOOD NEGATIVE (NEGATIVE); URINE COLOR YELLOW; URINE GLUCOSE (UA) NEGATIVE (NEGATIVE); URINE KETONE NEGATIVE (NEGATIVE); URINE LEUKOCYTE ESTERASE NEGATIVE (NEGATIVE); URINE NITRITE NEGATIVE (NEGATIVE); URINE PROTEIN NEGATIVE (NEGATIVE)
[2017-08-01 21:52] LABS: BLOOD UREA NITROGEN 10 mg/dL (6-20); CREATININE 0.6 mg/dL (0.5-0.9); EST GLOMERULAR FILTRATION RATE > 60 mL/min; INR 0.9; PROTHROMBIN TIME (PATIENT) 9.7 SECONDS (9.5-12.1)
[2017-08-01 21:53] LABS: TOTAL PROTEIN 6.7 g/dL (6.6-8.7)
[2017-08-01 21:55] LABS: GLUCOSE,RANDOM 107 mg/dL (74-109)
[2017-08-01 21:58] LABS: ALB/GLOB RATIO 1.3 (1.1-1.8); ALBUMIN 3.8 g/dL (4.0-5.0); ALKALINE PHOSPHATASE 135 U/L (35-104); ALT/SGPT 11 U/L (<33); AST/SGOT 19 U/L (10.0-35.0)
[2017-08-01] MEDS: NITROGLYCERIN 0.4MG SL TABLET #25 BTL SL PRN ×3 (22:37→22:47)
[2017-08-01] MEDS ORDERED: ACETAMINOPHEN 500 MG TABLET PO ONE (23:10)
[2017-08-01] MEDS ORDERED: LORAZEPAM 2 MG/ML VIAL IV ONE (23:18)
[2017-08-02] MEDS ORDERED: ONDANSETRON 4 MG ODT TABLET SL ONE (00:50)
--- NOTE | 2017-08-03 08:47 | RADIOLOGY REPORT ---
EXAM: CHEST HISTORY: CHEST PRESSURE, TIRED FEELING. TECHNIQUE: Two views of the chest were obtained. Comparison: 11/26/15. FINDINGS: The heart is not enlarged. No mediastinal mass. No acute infiltrate or vascular congestion. There is an [id number] type catheter present with the port overlying the upper right thorax. IMPRESSION: 1. NO ACUTE CARDIOPULMONARY ABNORMALITY. 2. THERE IS AN [id number] TYPE CATHETER IN PLACE. JOB NUMBER: [id number] [facility]
== END 2017-08-02 02:28 | disposition home or self-care (01) ==
LOC: ER 21:00
DX: R07.89 Other chest pain (principal); G89.4 Chronic pain syndrome; M32.9 Systemic lupus erythematosus, unspecified; K90.9 Intestinal malabsorption, unspecified; R06.02 Shortness of breath; R11.0 Nausea; Z98.890 Other specified postprocedural states; Z98.84 Bariatric surgery status
CPT/HCPCS: 99284 ×2; 96374; 83605; 85025; 85651; 85610; 80053; 81003; 84484; 85379; 71046; 93005 ×2; 93010 ×2; J2060

== ENCOUNTER 2017-10-22 15:34 | Emergency (ER) | payer MEDICAID ==
--- NOTE | 2017-10-22 15:53 | Emergency Department Record ---
History of Present Illness - General Chief complaint: Pain Stated complaint: ACHE ALL OVER/HARD TO WALK/LAURA Time Seen by Provider: 10/22/17 15:39 Source: Patient Mode of Arrival: Ambulatory Limitations: No limitations - History of Present Illness Initial comments: 51 yo female presents with pain diffusely throughout her body since Tuesday. She states this occurred/worsened after an MRI. She does have chronic pain, fibromyalgia, Lupus, MS, malabsorption, chronically on [place]. No fevers. No chills. No cough. No swelling or calf changes. Since the MRI all her muscles and joints hurt making activities of daily living difficult. No falls or trauma. She reports this occurring several times in the last year especially with a stress like surgery, procedure or test. 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 NO vomiting or diarrhea. She went to her infusion yesterday without difficulty for her chronic malabsorbtion syndrome. MD Complaint: Diffuse, Other -: Days(s) Location: Other (all over the body at this time) -: Yes Arthralgia, Yes Myalgia Quality: Aching Consistency: Constant Improves with: Nothing Worsens with: Walking, Weight bearing Associated Symptoms: Denies other symptoms - Related Data Allergies Allergy/AdvReac Type Severity Reaction Status Date / Time aspirin [ASPIRIN] Allergy Unknown ABDOMINAL Verified 10/22/17 15:52 PAIN iodine [IODINE] Allergy Unknown SHORTNESS Verified 10/22/17 15:52 OF BREATH latex [LATEX] Allergy Unknown RASH Verified 10/22/17 15:52 NSAIDS (Non-Steroidal Allergy Unknown ABDOMINAL Verified 10/22/17 15:52 Anti-Inflamma CRAMPS [NSAIDS (NON-STEROIDAL ANTI-INFLAMMA] duloxetine [From Cymbalta] Allergy BEHAVIORAL Verified 10/22/17 15:52 CHANGES morphine Allergy DIFFICULTY Verified 10/22/17 15:52 BREATHING pregabalin [From Lyrica] Allergy SWELLING Verified 10/22/17 15:52 (GENERAL) tramadol Allergy DIZZINESS Verified 10/22/17 15:52 venlafaxine [From Effexor] Allergy SWELLING Verified 10/22/17 15:52 (GENERAL) venom-honey bee Allergy ANAPHYLAXIS Verified 10/22/17 15:52 [bee venom (honey bee)] Review of Systems Constitutional: Denies: Chills, Fever, Malaise, Weakness Eyes: Denies: Eye discharge ENT: Denies: Congestion, Throat pain Respiratory: Denies: Cough, Dyspnea, Wheezes Cardiovascular: Denies: Chest pain, Palpitations, Syncope Endocrine: Reports: Fatigue Gastrointestinal: Denies: Abdominal pain, Diarrhea, Nausea, Vomiting Genitourinary: Denies: Dysuria, Urgency Musculoskeletal: Reports: Arthralgia, Back pain, Myalgia, Neck pain Skin: Denies: Bruising, Change in color, Rash Neurological: Reports: Weakness. Denies: Confusion, Headache Psychiatric: Denies: Anxiety Hematological/Lymphatic: Denies: Blood Clots, Easy bleeding, Easy bruising, Swollen glands Past Medical History - SOCIAL HISTORY Smoking Status: Former smoker - RESPIRATORY Hx Respiratory Disorders: Yes Hx Pneumonia: Yes (hospitalized in January 2016) - CARDIOVASCULAR Hx Cardio Disorders: No - NEURO Hx Neuro Disorders: Yes Hx Seizures: Yes (February 2016) - GI Hx GI Disorders: Yes Hx Nausea/Vomiting: Yes Hx Ulcer: Yes Comment:: poor absorption - Hx Genitourinary Disorders: Yes Hx Kidney Stones: Yes Hx UTI: Yes - ENDOCRINE Hx Endocrine Disorders: Yes Hx Diabetes: Yes (corrected after gastric bypass) - MUSCULOSKELETAL Hx Musculoskeletal Disorders: Yes Hx Arthritis: Yes Hx Fibromyalgia: Yes Comment:: chronic pain - PSYCH Hx Psych Problems: Yes Hx Anxiety: Yes Hx Depression: Yes - HEMATOLOGY/ONCOLOGY Hx Hematology/Oncology Disorders: Yes Hx Anemia: Yes Hx Blood Transfusions: Yes Comment:: Lupus Family Medical History Hx Diabetes: Father, Mother, Grandparents Hx Heart Disease: Father, Mother, Grandparents Hx HTN: Father, Mother Hx Kidney Disease: Grandparents Hx Resp Disorders: Father, Mother, Grandparents Hx Seizures: Brother/Sister Hx Stroke: Brother/Sister Course - Reevaluation(s) Reevaluation #1: The vitals were reviewed No acute significant findings. The patient is non ill appearing, calm, relaxed, conversational. No acute physical findings demonstrated to suggest significant changes from prior recorded findings. 10/22/17 15:56 [facility] was reviewed. The MRI's of the Brain,Orbits and Lumbar spine were all essentially negative for any acute pathology. No demyelinating processes, masses, new findings. 10/22/17 16:10 CMP reviewed from 10/18/17. No acute changes. CBC reviewed. Hgb 11.1 otherwise normal. Hgb unchanged from July 2017 at [facility] Given the normal vitals, significant testing the last few days being normal no other work up indicated at this time. No acute findings on the radiologic studies of concern this week. The labs are very recent without acute findings. The vitals do not demonstrate findings suggesting significant changes from her baseline. We discussed her diffuse symptoms, her multiple chronic conditions that will require close follow up with her various specialist and PCP. Disposition Disposition: Discharge Clinical Impression: Myalgia, Chronic pain Disposition: Home, Self-Care Condition: (1) Good Instructions: Musculoskeletal Pain (ED) Additional Instructions: Call your family doctor and your specialist this week if not greatly improved. Be seen if worse, vomiting, fever, rash, swelling, or new symptoms. Forms: Patient Portal Access Time of Disposition: 16:20 Quality - Quality Measures Quality Measures: N/A - Blood Pressure Screening Does Patient Have Any of the Following: No Blood Pressure Classification: Normal BP Reading Systolic Measurement: 113 Diastolic Measurement: 63 Screening for High Blood Pressure: < Normal BP, F/U Not Required > [G8783]
[2017-10-22] MEDS ORDERED: KETOROLAC 30 MG/ML VIAL IM ONE (16:08)
[2017-10-22] MEDS ORDERED: DEXAMETHASONE SOD PHOSPHATE 10MG/ML VIAL IM ONE (16:10)
== END 2017-10-22 16:37 | disposition home or self-care (01) ==
LOC: ER 15:34
DX: G89.29 Other chronic pain (principal); M79.1 Myalgia; R06.00 Dyspnea, unspecified; R26.2 Difficulty in walking, not elsewhere classified; F17.210 Nicotine dependence, cigarettes, uncomplicated
CPT/HCPCS: 99283; 96372; 99284; J1885; J1100

== ENCOUNTER 2017-11-26 19:18 | Emergency (ER) | payer MEDICAID ==
[2017-11-26] MEDS ORDERED: 0.9 % SODIUM CHLORIDE 1000ML 1,000 ML IV SCH (19:30)
--- NOTE | 2017-11-26 19:37 | Emergency Department Record ---
History of Present Illness - General Chief Complaint: Seizures Stated Complaint: FALL INJURY/SEZURE Time Seen by Provider: 11/26/17 19:29 Source: EMS Mode of Arrival: EMS Limitations: No limitations - History of Present Illness Initial Comments: 52 yo female presents to ED for possible seizure vs. fall. Per EMS, child at the patient's residence noted the patient on the ground following a possible fall. EMS reports the patient had a witnessed seizure (1) year ago, was not started on anti-seizure medications following her evaluation. Patient denies fevers, chills, or recent illness. Accu check on examination was 145. Patient denies focal weakness on examination. MD Complaint: Possible seizure Onset/Timin -: Minutes(s) Witnessed: Yes - by bystander Trauma: No Seizure History: Known seizure disorder Place: Home Possible Precipitating Event: None Associated Symptoms: Denies other symptoms Treatments Prior to Arrival: None - [place] Coma Scale Eye Response: (4) Open spontaneously Motor Response: (6) Obeys commands Verbal Response: (5) Oriented [place] Total: 15 - Related Data Home Medications Medication Instructions Recorded Confirmed Last Taken Hydrocodone/Acetaminophen 1 tab PO Q6H 11/26/17 11/26/17 Unknown [Hydrocodone/Acetaminophen 7.5mg/325mg] Allergies Allergy/AdvReac Type Severity Reaction Status Date / Time aspirin [ASPIRIN] Allergy Unknown ABDOMINAL Verified 10/22/17 15:52 PAIN iodine [IODINE] Allergy Unknown SHORTNESS Verified 10/22/17 15:52 OF BREATH latex [LATEX] Allergy Unknown RASH Verified 10/22/17 15:52 NSAIDS (Non-Steroidal Allergy Unknown ABDOMINAL Verified 10/22/17 15:52 Anti-Inflamma CRAMPS [NSAIDS (NON-STEROIDAL ANTI-INFLAMMA] duloxetine [From Cymbalta] Allergy BEHAVIORAL Verified 10/22/17 15:52 CHANGES morphine Allergy DIFFICULTY Verified 10/22/17 15:52 BREATHING pregabalin [From Lyrica] Allergy SWELLING Verified 10/22/17 15:52 (GENERAL) tramadol Allergy DIZZINESS Verified 10/22/17 15:52 venlafaxine [From Effexor] Allergy SWELLING Verified 10/22/17 15:52 (GENERAL) venom-honey bee Allergy ANAPHYLAXIS Verified 10/22/17 15:52 [bee venom (honey bee)] Review of Systems Constitutional: Denies: Chills, Fever, Malaise, Night sweats Eyes: Denies: Eye discharge, Eye pain ENT: Denies: Congestion, Ear pain Respiratory: Denies: Cough, Dyspnea Cardiovascular: Denies: Chest pain, Dyspnea on exertion Endocrine: Denies: Fatigue, Heat or cold intolerance Gastrointestinal: Denies: Abdominal pain, Nausea, Vomiting Genitourinary: Denies: Incontinence, Retention Musculoskeletal: Denies: Arthralgia, Back pain Skin: Denies: Bruising, Change in color Neurological: Reports: Seizure (Unknown). Denies: Confusion, Headache, Numbness Psychiatric: Denies: Anxiety Hematological/Lymphatic: Denies: Anemia, Blood Clots Past Medical History - SOCIAL HISTORY Smoking Status: Former smoker - RESPIRATORY Hx Respiratory Disorders: Yes Hx Pneumonia: Yes (hospitalized in January 2016) - CARDIOVASCULAR Hx Cardio Disorders: No - NEURO Hx Neuro Disorders: Yes Hx Seizures: Yes (February 2016) - GI Hx GI Disorders: Yes Hx Nausea/Vomiting: Yes Hx Ulcer: Yes Comment:: poor absorption - Hx Genitourinary Disorders: Yes Hx Kidney Stones: Yes Hx UTI: Yes - ENDOCRINE Hx Endocrine Disorders: Yes Hx Diabetes: Yes (corrected after gastric bypass) - MUSCULOSKELETAL Hx Musculoskeletal Disorders: Yes Hx Arthritis: Yes Hx Fibromyalgia: Yes Comment:: chronic pain - PSYCH Hx Psych Problems: Yes Hx Anxiety: Yes Hx Depression: Yes - HEMATOLOGY/ONCOLOGY Hx Hematology/Oncology Disorders: Yes Hx Anemia: Yes Hx Blood Transfusions: Yes Comment:: Lupus Family Medical History Hx Diabetes: Father, Mother, Grandparents Hx Heart Disease: Father, Mother, Grandparents Hx HTN: Father, Mother Hx Kidney Disease: Grandparents Hx Resp Disorders: Father, Mother, Grandparents Hx Seizures: Brother/Sister Hx Stroke: Brother/Sister Physical Exam - General General Appearance: Alert, Oriented x3, Cooperative, No acute distress Limitations: No limitations - Head Head exam: Atraumatic, Normocephalic, Normal inspection Head exam detail: negative: Abrasion, Contusion, Milligan's sign, General tenderness, Hematoma, Laceration - Eye Eye exam: Normal appearance. negative: Conjunctival injection, Periorbital swelling, Periorbital tenderness, Scleral icterus - ENT Ear exam: negative: Auricular hematoma, Auricular trauma Nasal Exam: negative: Active bleeding, Discharge, Dried blood, Foreign body Mouth exam: negative: Drooling, Laceration, Muffled voice, Tongue elevation - Neck Neck exam: Normal inspection. negative: Meningismus, Tenderness - Respiratory Respiratory exam: Normal lung sounds bilaterally. negative: Rales, Respiratory distress, Rhonchi, Stridor - Cardiovascular Cardiovascular Exam: Regular rate, Normal rhythm, Normal heart sounds - GI/Abdominal GI/Abdominal exam: Soft. negative: Rebound, Rigid, Tenderness - Rectal Rectal exam: Deferred - exam: Deferred - Extremities Extremities exam: Other (Abrasion over the right ankle). negative: Calf tenderness, Pedal edema, Tenderness - Back Back exam: Denies: CVA tenderness (R), CVA tenderness (L) - Neurological Neurological exam: Alert, CN II-XII intact, Oriented X3. negative: Motor sensory deficit - Psychiatric Psychiatric exam: Normal affect, Normal mood - Skin Skin exam: Abrasion (Over the right lateral ankle), Normal color Course Vital Signs 11/26/17 19:27 Temperature 97.8 F Pulse Rate [ 96 H Pulse Ox Probe] Respiratory 16 Rate Blood Pressure 134/89 [Left Arm] Pulse Ox 97 - Reevaluation(s) Reevaluation #1: 11/26/17 19:49 EKG: NSR 92 QRS 129, normal intervals No acute ST-T wave changes Reevaluation #2: 11/26/17 20:26 Laboratory studies were reviewed and are grossly unremarkable for an acute process except for: CK 45 LA 2.5 Hgb 11.2. Laboratory studies do not appear c/w seizure. CT imaging results are pending. Reevaluation #3: 11/26/17 20:47 CT Head: No acute intra-cranial process identified CT Cervical Spine: Degenerative changes, nothing acute. Patient was updated on all results, will attempt ambulation trial. Reevaluation #4: 11/26/17 21:19 Patient ambulated with steady gait, appears stable for discharge at this time. Patient was encouraged to follow-up with her PCP for further evaluation and possible outpatient neurology consultation. Medical Decision Making - Lab Data Result diagrams: 11/26/17 19:50 11/26/17 19:50 Disposition Disposition: Discharge Clinical Impression: Fall Qualifiers: Encounter type: initial encounter Qualified Code(s): W19.XXXA - Unspecified fall, initial encounter Disposition: Home, Self-Care Condition: (2) Stable Instructions: Contusion in Adults (ED) Additional Instructions: Return to ED if your symptoms worsen or if you have any concerns. Continue your home medications as directed. Follow-up with your family doctor in 3-5 days as directed to determine if further evaluation for possible seizures is necessary. Forms: Patient Portal Access Time of Disposition: 20:50 Quality - Quality Measures Quality Measures: N/A - Blood Pressure Screening Does Patient Have Any of the Following: No Blood Pressure Classification: Pre-Hypertensive BP Reading Systolic Measurement: 134 Diastolic Measurement: 89 Screening for High Blood Pressure: < Pre-Hypertensive BP, F/U Documented > [ G8950] Pre-Hypertensive Follow-up Interventions: Referral to alternative/primary care provider.
[2017-11-26 20:05] LABS: BASO % 0.7 % (0-6); EOS % 1.3 % (0-6); GRAN % 70.4 % (47-80); HEMATOCRIT 36.3 % (35.0-47.0); HEMOGLOBIN 11.2 gm/dl (11.6-16.0); LYMPH % 20.6 % (16-45); MEAN CELL VOLUME 97.1 fl (81-97); MEAN CORPUSCULAR HEMOGLOBIN 29.9 pg (27-33); MEAN CORPUSCULAR HGB CONC 30.9 g/dl (32-36); PLATELET COUNT 230 K/uL (130-400); RED BLOOD COUNT 3.74 M/uL (3.80-5.40); RED CELL DISTRIBUTION WIDTH 12.8 % (11.5-14.5); WHITE BLOOD COUNT W/O DIFF 8.6 K/uL (4.2-12.2)
[2017-11-26 20:15] LABS: BLOOD UREA NITROGEN 9 mg/dL (6-20); CREATININE 0.7 mg/dL (0.5-0.9); EST GLOMERULAR FILTRATION RATE > 60 mL/min; TOTAL PROTEIN 6.7 g/dL (6.6-8.7)
[2017-11-26 20:17] LABS: GLUCOSE,RANDOM 163 mg/dL (74-109)
[2017-11-26 20:18] LABS: LACTIC ACID 2.5 mmol/L (0.5-2.2)
[2017-11-26 20:20] LABS: ALB/GLOB RATIO 1.6 (1.1-1.8); ALBUMIN 4.1 g/dL (4.0-5.0); ALKALINE PHOSPHATASE 106 U/L (35-104); ALT/SGPT 12 U/L (<33); AST/SGOT 16 U/L (10.0-35.0); CREATINE PHOSPHOKINASE 45 U/L (26-192)
[2017-11-26] MEDS ORDERED: ACETAMINOPHEN 1,000 MG/100 ML BTL IVPB ONE (20:30)
[2017-11-26] MEDS ORDERED: HEPARIN SODIUM FLUSH 100 UNITS/ML SYR 5ML IVP ONE (21:33)
--- NOTE | 2017-11-29 08:12 | CT SCAN REPORT ---
EXAM: CT SCAN OF THE HEAD HISTORY: PATIENT HAS A HISTORY OF SEIZURE. PATIENT HIT HEAD. TECHNIQUE: Serial axial CT scan of the head was performed at 2.5 mm intervals from the base of the skull to the apex without the use of intravenous contrast. Comparison: CT scan of the head dated 06/27/16 is provided. FINDINGS: The ventricles, cisterns, and sulci appear normal limits for size, shape and attenuation. There is no mass or mass effect. The mai white differentiation appears within normal limits. There is no CT evidence of intra or extraaxial fluid collection to suggest bleed. Bone windows demonstrate no CT evidence of a fracture or dislocation of the skull. The visualized paranasal sinuses are unremarkable. IMPRESSION: NO CT EVIDENCE OF AN ACUTE INTRACRANIAL PROCESS. JOB [facility]BER: [id number] [facility]
--- NOTE | 2017-11-29 08:21 | CT SCAN REPORT ---
EXAM: CT SCAN OF THE CERVICAL SPINE HISTORY: PATIENT HAS A HISTORY OF SEIZURE. PATIENT HAS HISTORY OF HITTING HER HEAD. TECHNIQUE: Serial axial CT scan of the cervical spine was performed at 2.5 mm intervals from the base of the skull to the thoracic inlet without the use of intravenous contrast. Sagittal and coronal reconstructions are provided. No comparison studies are available. FINDINGS: The vertebral body height, contour, and AP alignment of the cervical spine is within normal limits. Moderate to advanced disk space height loss with end plate sclerosis and anterior vertebral body osteophyte formation is noted at the C5-C6 disk space level. There is no CT evidence of a fracture or dislocation of the cervical spine. The prevertebral soft tissue and parapharyngeal fat are unremarkable. The bilateral parotid glands, submandibular gland, and thyroid gland are unremarkable. There is no CT evidence of cervical lymphadenopathy. Airways are patent. The lung windows of the lung apices demonstrate curvilinear density within the anterior right upper lobe which may represent scarring along the minor fissure. IMPRESSION: DEGENERATIVE DISK DISEASE OF THE CERVICAL SPINE IS NOTED WITHOUT CT EVIDENCE OF AN ACUTE PROCESS INVOLVING THE CERVICAL SPINE. JOB NUMBER: [id number] [facility]
== END 2017-11-26 21:42 | disposition home or self-care (01) ==
LOC: ER 19:18
DX: S90.511A Abrasion, right ankle, initial encounter (principal); G40.909 Epilepsy, unspecified, not intractable, without status epilepticus; W19.XXXA Unspecified fall, initial encounter; Z87.891 Personal history of nicotine dependence; Z98.84 Bariatric surgery status
CPT/HCPCS: 99284 ×2; 96365; 96361; 82550; 83605; 85025; 80053; 72125; 70450; 93005; 93010; J1642; J7030

== ENCOUNTER 2018-02-19 20:59 | Emergency (ER) | payer MEDICAID ==
[2018-02-19] MEDS ORDERED: AZITHROMYCIN 500 MG TABLET PO ONE (21:08)
[2018-02-19] MEDS ORDERED: PREDNISONE 20 MG TAB PO ONE (21:08)
--- NOTE | 2018-02-19 21:10 | Emergency Department Record ---
History of Present Illness - General Stated Complaint: LAURA,WHEEZING Time Seen by Provider: 02/19/18 21:08 Source: Patient Mode of Arrival: Ambulatory Limitations: No limitations - History of Present Illness Initial Comments: 52 yo female presents to ED for evaluation of cough and wheezing symtpoms that began yesterday. Patient denies fevers, chills, or fatigue symptoms, does report however that the cough symptoms will not allow her to sleep at home. Patient reports previous history of similar symptoms related to pneumonia and bronchitis previously. MD Complaint: Cough Onset/Timin -: Days(s) Severity: Moderate Consistency: Intermittent Improves With: Nothing Worsens With: Deep breaths Associated Symptoms: Denies other symptoms Treatments Prior to Arrival: None - Related Data Home Medications Medication Instructions Recorded Confirmed Last Taken Carbamazepine [Tegretol] 400 mg PO BID 02/19/18 02/19/18 Unknown Previous Rx's Medication Instructions Recorded Albuterol Sulfate [Proair Hfa] 1 - 2 puff IH .EVERY 4-6 HOURS PRN 02/19/18 #1 inhaler Azithromycin [Zithromax] 250 mg PO DAILY #4 tab 02/19/18 Prednisone [Prednisone 20Mg] 20 mg PO TID #12 tab 02/19/18 Allergies Allergy/AdvReac Type Severity Reaction Status Date / Time aspirin [ASPIRIN] Allergy Unknown ABDOMINAL Verified 10/22/17 15:52 PAIN iodine [IODINE] Allergy Unknown SHORTNESS Verified 10/22/17 15:52 OF BREATH latex [LATEX] Allergy Unknown RASH Verified 10/22/17 15:52 NSAIDS (Non-Steroidal Allergy Unknown ABDOMINAL Verified 10/22/17 15:52 Anti-Inflamma CRAMPS [NSAIDS (NON-STEROIDAL ANTI-INFLAMMA] duloxetine [From Cymbalta] Allergy BEHAVIORAL Verified 10/22/17 15:52 CHANGES morphine Allergy DIFFICULTY Verified 10/22/17 15:52 BREATHING pregabalin [From Lyrica] Allergy SWELLING Verified 10/22/17 15:52 (GENERAL) tramadol Allergy DIZZINESS Verified 10/22/17 15:52 venlafaxine [From Effexor] Allergy SWELLING Verified 10/22/17 15:52 (GENERAL) venom-honey bee Allergy ANAPHYLAXIS Verified 10/22/17 15:52 [bee venom (honey bee)] Review of Systems Constitutional: Denies: Chills, Fever, Malaise, Night sweats Eyes: Denies: Eye discharge, Eye pain ENT: Reports: Congestion. Denies: Ear pain, Epistaxis Respiratory: Reports: Cough, Wheezes. Denies: Dyspnea Cardiovascular: Denies: Chest pain, Dyspnea on exertion Endocrine: Denies: Fatigue, Heat or cold intolerance Gastrointestinal: Denies: Abdominal pain, Nausea, Vomiting Genitourinary: Denies: Incontinence, Retention Musculoskeletal: Denies: Arthralgia, Back pain, Gout, Joint swelling Skin: Denies: Bruising, Change in color, Change in hair/nails Neurological: Denies: Abnormal gait, Confusion, Headache, Seizure Psychiatric: Denies: Anxiety Hematological/Lymphatic: Denies: Anemia, Blood Clots Past Medical History - SOCIAL HISTORY Smoking Status: Former smoker - RESPIRATORY Hx Respiratory Disorders: Yes Hx Pneumonia: Yes (hospitalized in January 2016) - CARDIOVASCULAR Hx Cardio Disorders: No - NEURO Hx Neuro Disorders: Yes Hx Seizures: Yes (February 2016) - GI Hx GI Disorders: Yes Hx Nausea/Vomiting: Yes Hx Ulcer: Yes Comment:: poor absorption - Hx Genitourinary Disorders: Yes Hx Kidney Stones: Yes Hx UTI: Yes - ENDOCRINE Hx Endocrine Disorders: Yes Hx Diabetes: Yes (corrected after gastric bypass) - MUSCULOSKELETAL Hx Musculoskeletal Disorders: Yes Hx Arthritis: Yes Hx Fibromyalgia: Yes Comment:: chronic pain - PSYCH Hx Psych Problems: Yes Hx Anxiety: Yes Hx Depression: Yes - HEMATOLOGY/ONCOLOGY Hx Hematology/Oncology Disorders: Yes Hx Anemia: Yes Hx Blood Transfusions: Yes Comment:: Lupus Family Medical History Hx Diabetes: Father, Mother, Grandparents Hx Heart Disease: Father, Mother, Grandparents Hx HTN: Father, Mother Hx Kidney Disease: Grandparents Hx Resp Disorders: Father, Mother, Grandparents Hx Seizures: Brother/Sister Hx Stroke: Brother/Sister Physical Exam - General General Appearance: Alert, Oriented x3, Cooperative, Mild distress Limitations: No limitations - Head Head exam: Atraumatic, Normocephalic, Normal inspection Head exam detail: negative: Abrasion, Contusion, Milligan's sign, General tenderness, Hematoma, Laceration - Eye Eye exam: Normal appearance. negative: Conjunctival injection, Periorbital swelling, Periorbital tenderness, Scleral icterus - ENT Ear exam: negative: Auricular hematoma, Auricular trauma Nasal Exam: negative: Active bleeding, Discharge, Dried blood, Foreign body Mouth exam: negative: Drooling, Laceration, Muffled voice, Tongue elevation - Neck Neck exam: Normal inspection. negative: Meningismus, Tenderness - Respiratory Respiratory exam: Normal lung sounds bilaterally, Other (Nonproductive cough symptoms are present on examination.). negative: Prolonged expiratory, Rales, Respiratory distress, Rhonchi, Stridor, Wheezes - Cardiovascular Cardiovascular Exam: Regular rate, Normal rhythm, Normal heart sounds - GI/Abdominal GI/Abdominal exam: Soft. negative: Rebound, Rigid, Tenderness - Rectal Rectal exam: Deferred - exam: Deferred - Extremities Extremities exam: Normal inspection. negative: Pedal edema, Tenderness - Back Back exam: Denies: CVA tenderness (R), CVA tenderness (L) - Neurological Neurological exam: Alert, Normal gait, Oriented X3 - Psychiatric Psychiatric exam: Normal affect, Normal mood - Skin Skin exam: Normal color. negative: Abrasion Type of lesion: negative: abrasion Course Vital Signs 02/19/18 21:05 Temperature 98.1 F Pulse Rate [ 102 H Pulse Ox Probe] Respiratory 24 Rate Blood Pressure 127/85 [Left Arm] Pulse Ox 99 - Reevaluation(s) Reevaluation #1: 02/19/18 21:22 Patient was seen and examined Symptoms appear c/w acute bronchitis Will treat with Zithromax, Prednisone, and Albuterol inhaler as directed. Patient is otherwise well appearing and stable for discharge at this time. Disposition Disposition: Discharge Clinical Impression: Acute bronchitis Qualifiers: Bronchitis organism: unspecified organism Qualified Code(s): J20.9 - Acute bronchitis, unspecified Disposition: Home, Self-Care Condition: (2) Stable Instructions: Acute Bronchitis (ED) Additional Instructions: Return to ED if your symptoms worsen or if you have any concerns. Prednisone, Zithromax, and Albuterol as directed. Follow-up with your family doctor in 3-5 days as directed. Prescriptions: Albuterol Sulfate [Proair Hfa] 1 - 2 puff IH .EVERY 4-6 HOURS PRN #1 inhaler PRN Reason: Difficulty In Breathing Azithromycin [Zithromax] 250 mg PO DAILY #4 tab Prednisone [Prednisone 20Mg] 20 mg PO TID #12 tab Forms: Patient Portal Access Time of Disposition: 21:10 Quality - Quality Measures Quality Measures: N/A, Adult Bronchitis (18-64yr) - Adult Bronchitis Quality Measure: Measure #116: Avoidance of ABX w/Adult Bronchitis ICD10 Codes Entered: Yes Is patient being admitted: No Avoidance of ABX w/Bronchitis: Medical Reason for prescribing ABX [G9712] Medical Reason For Rx: Chronic bronchitis - Blood Pressure Screening Does Patient Have Any of the Following: No Blood Pressure Classification: Pre-Hypertensive BP Reading Systolic Measurement: 127 Diastolic Measurement: 85 Screening for High Blood Pressure: < Pre-Hypertensive BP, F/U Documented > [ G8950] Pre-Hypertensive Follow-up Interventions: Referral to alternative/primary care provider.
== END 2018-02-19 21:24 | disposition home or self-care (01) ==
LOC: ER 20:59
DX: J20.9 Acute bronchitis, unspecified (principal); Z87.891 Personal history of nicotine dependence
CPT/HCPCS: 99282; J7512

== ENCOUNTER 2018-09-05 05:36 | Emergency (ER) | payer MEDICAID ==
[2018-09-05] MEDS ORDERED: CEPHALEXIN 125 MG/5 ML BTL 100ML PO STA (05:54)
--- NOTE | 2018-09-05 05:54 | Emergency Department Record ---
History of Present Illness - General Chief Complaint: Wound, check Stated Complaint: SORE ON LEG Time Seen by Provider: 09/05/18 05:42 Source: Patient Mode of arrival: Ambulatory Limitations: No limitations - History of Present Illness Initial Comments: The patient is here due to having pain and redness behind the R knee for almost a week. She did fall 2 days ago and injure her R lower leg. [place] [facility] [place] and had multiple xrays that were neg. Since the fall the area behind the knee seems to be worse. Now it is more red and painful. The patient denies any fever, chills, or new leg pain. MD Complaint: Other Onset/Timin -: Days(s) Initial Visit For: Other Returns Today for: Other Associated Symptoms: None Treatments Prior to Arrival: Dressings, Home treatments - Related Data Previous Rx's Medication Instructions Recorded Cephalexin [Keflex] 10 ml PO TID #210 ml 09/05/18 Nystatin 1 apply TP BID #30 gm 09/05/18 Allergies Allergy/AdvReac Type Severity Reaction Status Date / Time duloxetine HCl Allergy Mild Unverified 08/24/18 14:53 [From Cymbalta] aspirin [ASPIRIN] Allergy Unknown ABDOMINAL Unverified 08/24/18 14:53 PAIN iodine [IODINE] Allergy Unknown SHORTNESS Unverified 08/24/18 14:53 OF BREATH latex [LATEX] Allergy Unknown RASH Unverified 08/24/18 14:53 NSAIDS (Non-Steroidal Allergy Unknown ABDOMINAL Unverified 08/24/18 14:53 Anti-Inflamma CRAMPS [NSAIDS (NON-STEROIDAL ANTI-INFLAMMA] duloxetine [From Cymbalta] Allergy BEHAVIORAL Unverified 08/24/18 14:53 CHANGES morphine Allergy DIFFICULTY Unverified 08/24/18 14:53 BREATHING pregabalin [From Lyrica] Allergy SWELLING Unverified 08/24/18 14:53 (GENERAL) tramadol Allergy DIZZINESS Unverified 08/24/18 14:53 venlafaxine [From Effexor] Allergy SWELLING Unverified 08/24/18 14:53 (GENERAL) venom-honey bee Allergy ANAPHYLAXIS Unverified 08/24/18 14:53 [bee venom (honey bee)] Travel Screening - Travel/Exposure Within Last 30 Days Have you traveled within the last 30 days?: No - Travel Symptoms Symptom Screening: None Review of Systems Constitutional: Denies: Chills, Fever Past Medical History - SOCIAL HISTORY Smoking Status: Former smoker Alcohol Use: None Drug Use: None - RESPIRATORY Hx Respiratory Disorders: Yes Hx Pneumonia: Yes (hospitalized in January 2016) - CARDIOVASCULAR Hx Cardio Disorders: No - NEURO Hx Neuro Disorders: Yes Hx Seizures: Yes (February 2016) - GI Hx GI Disorders: Yes Hx Nausea/Vomiting: Yes Hx Ulcer: Yes Comment:: poor absorption - Hx Genitourinary Disorders: Yes Hx Kidney Stones: Yes Hx UTI: Yes - ENDOCRINE Hx Endocrine Disorders: Yes Hx Diabetes: Yes (corrected after gastric bypass) - MUSCULOSKELETAL Hx Musculoskeletal Disorders: Yes Hx Arthritis: Yes Hx Fibromyalgia: Yes Comment:: chronic pain - PSYCH Hx Psych Problems: Yes Hx Anxiety: Yes Hx Depression: Yes - HEMATOLOGY/ONCOLOGY Hx Hematology/Oncology Disorders: Yes Hx Anemia: Yes Hx Blood Transfusions: Yes Comment:: Lupus Family Medical History Any Significant Family History?: Yes Hx Diabetes: Father, Mother, Grandparents Hx Heart Disease: Father, Mother, Grandparents Hx HTN: Father, Mother Hx Kidney Disease: Grandparents Hx Resp Disorders: Father, Mother, Grandparents Hx Seizures: Brother/Sister Hx Stroke: Brother/Sister Physical Exam - General General Appearance: Alert, Oriented x3, Cooperative, No acute distress - Head Head exam: Atraumatic, Normocephalic - Extremities Extremities exam: Normal capillary refill, Tenderness (There is mild tenderness around the excoriated skin fold wound of the R posterior lower leg behind the k nee.), Other (The R lower leg is NVI.). negative: Normal inspection (There is bruising to the anterior R lower leg at the site of the previous trauma. Behind the knee in the skin fold there is excoriation and slightly weeping skin present. There is very minimal erythema surrounding the wound. The wound is actually in the skin fold that is created from the size of her legs. There is no abscess or warmth. ), Calf tenderness, Joint swelling Image of Full Body: 1 - Area of wound and excoriated skin. - Neurological Neurological exam: Alert. negative: Motor sensory deficit Course Vital Signs 09/05/18 05:38 Temperature 97.6 F Pulse Rate 90 Respiratory 16 Rate Blood Pressure 137/90 Pulse Ox 98 - Reevaluation(s) Reevaluation #1: I did explain to the patient that it appears the issue is due to the skin fold and size of the leg and it could be a yeast infection. Due to the erythema we will treat the patient with keflex and have her keep the area open to dry and she is to use the nystatin power as directed. She is to see her PCP tomorrow for recheck. 09/05/18 05:58 Disposition Disposition: Discharge Clinical Impression: Wound of skin Disposition: Home, Self-Care Condition: (2) Stable Instructions: Wound Infection (ED) Additional Instructions: Please take the Keflex as directed and please see your doctor tomorrow for recheck. Keep the wound dressed with Abx ointment during the day and then open at night to dry out. Return to the ER for any worsening symptoms. Please use the nystatin powder as directed also. Prescriptions: Cephalexin [Keflex] 10 ml PO TID #210 ml Nystatin 1 apply TP BID #30 gm Forms: Patient Portal Access Time of Disposition: 06:01 Quality - Quality Measures Quality Measures: N/A - Blood Pressure Screening View Details: Yes Does Patient Have Any of the Following: No Blood Pressure Classification: Hypertensive Reading Systolic Measurement: 137 Diastolic Measurement: 90 Screening for High Blood Pressure: < First Hypertensive BP, F/U Documented > [[id number]] First Hypertensive Follow-up Interventions: Referral to alternative/primary care provider.
== END 2018-09-05 06:10 | disposition home or self-care (01) ==
LOC: ER 05:36
DX: S80.811A Abrasion, right lower leg, initial encounter (principal); X58.XXXA Exposure to other specified factors, initial encounter
CPT/HCPCS: 99282